=== PATIENT | male | born 1965 | race Hispanic/Latino ===

== ENCOUNTER 2017-06-25 14:31 | Emergency (ER) | payer MEDICARE ==
[~2017-06-25 14:31] MED LIST: ALEN70TA47 PO; BISA5TAB12 PO; CHLO100T23 PO; CHOL400C9 PO; CICL15CR15 TP; LINA290C PO; LORA2DIS6 IJ; LORA2TAB2 PO; MULT1TAB59 PO; OMEP40CA37 PO; PHEN300C6 PO; TRIA15CR48 TP; TYL3 PO; [UNRECOGNIZED DRUG - CODE] PO
[2017-06-25] MEDS ORDERED: TETANUS/DIPHTHERIA TOXOID [ADULT] 0.5 ML VIAL IM ONE (15:13)
== END 2017-06-25 15:49 | disposition home or self-care (01) ==
LOC: EDH 14:31
DX: S01.01XA Laceration without foreign body of scalp, initial encounter (principal); W18.39XA Other fall on same level, initial encounter; Y93.89 Activity, other specified; Y92.89 Other specified places as the place of occurrence of the external cause; Y99.8 Other external cause status
CPT/HCPCS: 12032; 90471; 90714

== ENCOUNTER → 2018-01-07 | Outpatient (CLI) | payer MEDICARE | END | disposition home or self-care (01) | LOC: RAH 07:51 | PROVIDERS: ATTEND Internal Medicine Gastroenterology | DX: K80.20 Calculus of gallbladder without cholecystitis without obstruction (principal) | CPT/HCPCS: 76700 ==

== ENCOUNTER → 2018-03-31 | Outpatient (CLI) | payer MEDICARE ==
[~2018-03-31] MED LIST changes: +ALEN70TA10 PO; -ALEN70TA47 PO
== END | disposition home or self-care (01) ==
LOC: RAH 08:26
PROVIDERS: ATTEND Internal Medicine Gastroenterology
DX: K80.20 Calculus of gallbladder without cholecystitis without obstruction (principal)
CPT/HCPCS: 76700

== ENCOUNTER 2020-10-22 17:57 | Emergency (ER) | payer MEDICARE ==
[~2020-10-22] VITALS: Ht 162.6 cm; Wt 79.4 kg
[~2020-10-22 17:57] MED LIST changes: -ALEN70TA10 PO; +ALEN70TA80 PO; +OMEP40CA21 PO; -OMEP40CA37 PO
[2020-10-22] MEDS ORDERED: LIDOCAINE HCL 1% 20 ML VIAL ONE (19:22)
[2020-10-22] MEDS ORDERED: LIDOCAINE 1%-EPI 1:100,000 20 ML VIAL IJ SCH (19:30)
[2020-10-22 19:36] VITALS: BP 115/62
== END 2020-10-22 19:48 | disposition home or self-care (01) ==
LOC: EDH 17:57
DX: S01.01XA Laceration without foreign body of scalp, initial encounter (principal); Z79.899 Other long term (current) drug therapy; X58.XXXA Exposure to other specified factors, initial encounter; Y93.89 Activity, other specified; Y92.89 Other specified places as the place of occurrence of the external cause; Y99.8 Other external cause status
CPT/HCPCS: 12001; 70450

== ENCOUNTER 2021-07-20 13:52 | Emergency (ER) | payer MEDICARE ==
[~2021-07-20] VITALS: Ht 162.6 cm; Wt 86.2 kg
[2021-07-20 13:54] VITALS: BP 163/93
[2021-07-20] MEDS ORDERED: L.E.T. GEL 3ML SYG TP ONE (13:56)
[2021-07-20] MEDS ORDERED: BACITRACIN 28.4 GM OINT TP ONE (15:00)
== END 2021-07-20 15:00 | disposition home or self-care (01) ==
LOC: EDH 13:52
DX: S01.01XA Laceration without foreign body of scalp, initial encounter (principal); D64.9 Anemia, unspecified; K21.9 Gastro-esophageal reflux disease without esophagitis; F84.0 Autistic disorder; Z88.8 Allergy status to other drugs, medicaments and biological substances; Z79.899 Other long term (current) drug therapy; Z98.890 Other specified postprocedural states; W19.XXXA Unspecified fall, initial encounter; Y93.89 Activity, other specified; Y92.89 Other specified places as the place of occurrence of the external cause; Y99.8 Other external cause status
CPT/HCPCS: 12002

== ENCOUNTER 2021-09-22 15:15 | Emergency (ER) | payer MEDICARE ==
[~2021-09-22] VITALS: Ht 160 cm; Wt 58.1 kg
[~2021-09-22 15:15] MED LIST changes: -CHLO100T23 PO; +CHLO100T35 PO
[2021-09-22 15:26] VITALS: BP 106/65
== END 2021-09-22 17:03 | disposition home or self-care (01) ==
LOC: EDH 15:15
DX: T54.1X1A Toxic effect of other corrosive organic compounds, accidental (unintentional), initial encounter (principal); F84.0 Autistic disorder; F42.9 Obsessive-compulsive disorder, unspecified; K21.9 Gastro-esophageal reflux disease without esophagitis; Z88.8 Allergy status to other drugs, medicaments and biological substances; Z79.899 Other long term (current) drug therapy; Y92.89 Other specified places as the place of occurrence of the external cause

== ENCOUNTER 2022-07-12 10:26 | Emergency (ER) | payer MEDICARE ==
[~2022-07-12] VITALS: Ht 157.5 cm; Wt 22.7 kg
[~2022-07-12 10:26] MED LIST changes: +BISA-151 PO; -BISA5TAB12 PO
[2022-07-12 13:04] LABS: BASOPHILS % (AUTO) 0.7 % (0.0-5.0); EOSINOPHILS % (AUTO) 0.3 % (0.0-8.0); HEMATOCRIT 36.8 % (42-54); LYMPHOCYTES % (AUTO) 20.3 % (21.0-51.0); MEAN CORPUSCULAR HEMOGLOBIN 29.3 pg (27.0-33.0); MEAN CORPUSCULAR HGB CONC 34.5 g/dL (32.0-36.0); MEAN CORPUSCULAR VOLUME 84.8 fL (79-99); MONOCYTES % (AUTO) 11.8 % (3.0-13.0); NEUTROPHILS % (AUTO) 66.6 % (40.0-77.0); PLATELET COUNT (AUTO) 299 K/uL (130-400); RED BLOOD CELL COUNT(AUTO) 4.34 MIL/uL (4.50-6.20); RED CELL DISTRIBUTION WIDTH 15.7 % (11.0-15.5); WHITE BLOOD COUNT (AUTO) 11.8 K/uL (4.8-10.8)
[2022-07-12 13:25] LABS: INR 1.04 (0.85-1.15); PROTHROMBIN TIME 11.3 SEC (9.6-11.6)
[2022-07-12 13:27] LABS: ALBUMIN 4.1 g/dL (3.5-5.0); TOTAL PROTEIN, SERUM 7.6 g/dL (6.0-8.3)
[2022-07-12 14:36] LABS: APPEARANCE,URINE CLEAR (CLEAR); BILIRUBIN,URINE NEGATIVE (NEGATIVE); COLOR,URINE LIGHT-YELLOW (YELLOW); GLUCOSE, URINE (UA) NEGATIVE (NEGATIVE); KETONES,URINE NEGATIVE (NEGATIVE); LEUKOCYTE ESTERASE ,URINE NEGATIVE Leu/uL (NEGATIVE); NITRATE,URINE NEGATIVE (NEGATIVE); OCCULT BLOOD,URINE NEGATIVE (NEGATIVE); PH,URINE 5.5 (5.0-8.0); PROTEIN,URINE NEGATIVE (NEGATIVE); UROBILINOGEN,URINE 0.2 mg/dL (0.2-1.0)
[2022-07-12 15:09] LABS: MUCUS,URINE RARE LPF (None Seen); RBC,URINE 0-1 /HPF (0-1); WBC,URINE 0-1 /HPF (0-1)
[2022-07-12] MEDS ORDERED: IBUP-2070 PO (15:18)
== END 2022-07-12 15:33 | disposition home or self-care (01) ==
LOC: EDH 10:26
DX: S42.001A Fracture of unspecified part of right clavicle, initial encounter for closed fracture (principal); W18.39XA Other fall on same level, initial encounter; Y93.89 Activity, other specified; Y92.89 Other specified places as the place of occurrence of the external cause; Y99.8 Other external cause status; Z79.899 Other long term (current) drug therapy; Z98.890 Other specified postprocedural states
CPT/HCPCS: 36415; 73030; 80053; 81001; 85025; 85610; 85730

== ENCOUNTER 2024-06-28 07:40 | Day surgery (SDC) | payer MEDICARE ==
[2024-06-28] VITALS (10 sets, daily range): BP systolic 93–115; BP diastolic 50–65; PULSE 62–75; RESP 15–18; TEMP 97.2–97.8
[~2024-06-28] VITALS: Ht 149.9 cm; Wt 54.0 kg
[~2024-06-28 07:40] MED LIST changes: +IBUP-2070 PO
[2024-06-28] MEDS ORDERED: CHLO50TA52 PO (09:58)
[2024-06-28] MEDS ORDERED: POLY17PO4 PO (09:58)
[2024-06-28] MEDS ORDERED: TRAZ150T79 PO (09:58)
[2024-06-28] MEDS ORDERED: PLEC3TAB2 PO (09:58)
[2024-06-28] MEDS ORDERED: [UNRECOGNIZED DRUG - CODE] PO (09:58)
[2024-06-28] MEDS ORDERED: LACT-441 PO (09:58)
[2024-06-28] MEDS ORDERED: CHLO200T21 PO (09:58)
[2024-06-28] MEDS: DEXTROSE 50%-WATER 50 ML DISP.SYRIN IV ONE (10:15)
[2024-06-28] MEDS: 0.9%NACL 1000ML 1,000 ML IV ONE (10:16)
[2024-06-28] MEDS ORDERED: proPOFol 10 MG/ML 20ML VIAL IV ONE (10:53)
== END 2024-06-28 12:20 | disposition home or self-care (01) ==
LOC: ENDO 07:40 → DAH 07:40 → ENDO 12:20
PROVIDERS: ATTEND Internal Medicine Gastroenterology
DX: K21.00 Gastro-esophageal reflux disease with esophagitis, without bleeding (principal); K29.50 Unspecified chronic gastritis without bleeding; B96.81 Helicobacter pylori [H. pylori] as the cause of diseases classified elsewhere; K59.04 Chronic idiopathic constipation; K44.9 Diaphragmatic hernia without obstruction or gangrene; K80.20 Calculus of gallbladder without cholecystitis without obstruction; G40.909 Epilepsy, unspecified, not intractable, without status epilepticus; R12 Heartburn; Z79.899 Other long term (current) drug therapy; Z86.0100 Personal history of colon polyps, unspecified; Z98.890 Other specified postprocedural states; Z88.8 Allergy status to other drugs, medicaments and biological substances
CPT/HCPCS: 82948 ×3; 43239; J7030; J7070; J2704; A4620; A4215 ×2; A4223; A4222; A4221; A4663; A4606; J3490